=== PATIENT | female | born 1970 | race Two or more races ===

== ENCOUNTER → 2024-08-11 | Outpatient (CLI) | payer BC, SELFPAY ==
[2024-08-11 09:26] LABS: Misc Send Out* See Sep Rpt
[2024-08-11 09:50] LABS: Collection Type, Urine Clean Catch
[2024-08-11 10:09] LABS: Basophils # (Auto) 0.1 Thou/mm3 (0.0-0.2); Basophils % (Auto) 1 % (0-2.5); Eosinophils # (Auto) 0.5 Thou/mm3 (0.0-0.5); Eosinophils % (Auto) 7 % (0-10); Hematocrit 44.3 % (36.0-46.0); Hemoglobin 14.6 g/dL (12.0-16.0); Immature Granulocytes % (Auto) 0 % (0-0); Immature Granulocytes Auto 0.03 Thou/mm3 (0.00-0.00); Lymphocytes % (Auto) 39 % (10-50); Mean Corpuscular Hemoglobin 29.3 pg (25.0-35.0); Mean Corpuscular Volume 89 fL (80-100); Monocytes # (Auto) 0.7 Thou/mm3 (0.0-0.8); Monocytes % (Auto) 9 % (0-12); Neutrophils # (Auto) 3.4 Thou/mm3 (1.8-7.7); Neutrophils % (Auto) 45 % (37-80); Nucleated Red Blood Cell % 0 /100 WBC (0); Platelet Count 245 Thou/mm3 (140-440); Red Blood Count 4.99 Miln/mm3 (4.00-5.20); White Blood Count 7.7 Thou/mm3 (3.6-11.0)
[2024-08-11 10:13] LABS: Bilirubin,Urine Negative (Negative); Blood,Urine Negative (Negative); Clarity,Urine Clear (Clear/Hazy); Color,Urine Lt-Yellow (Lt Yel-Yel); Glucose, Urine Negative (Negative); Ketones,Urine Negative (Negative); Leukocyte Esterase,Urine Negative (Negative); Nitrite,Urine Negative (Negative); PH,Urine 5.5 (5.0-7.0); Protein,Urine Negative (Neg - Trace); RBC,Urine 3 /hpf (0-3); Specific Gravity,Urine 1.022 (1.001-1.035); Squamous Epithelial Cell,Urine 2 /hpf (0-5); Urobilinogen,Urine Negative mg/dL (0.0-1.0); WBC,Urine 1 /hpf (0-5)
[2024-08-11 10:13] LABS: Prothrombin Time 10.6 Seconds (9.0-12.2)
[2024-08-11 10:28] LABS: Alanine Aminotransferase 41 U/L (10-49); Albumin, Serum 4.4 gm/dL (3.5-5.0); Albumin/Globulin Ratio 1.5 (1.2-2.2); Alkaline Phosphatase 106 U/L (46-116); Anion Gap 4 (7-16); Aspartate Amino Transferase 13 U/L (0-34); BUN/Creatinine Ratio 18 Ratio (12-20); Bilirubin,Total 0.4 mg/dL (0.3-1.2); Blood Urea Nitrogen 18 mg/dL (9-23); Carbon Dioxide 26.9 mMol/L (20.0-31.0); Cardiac Risk Estimate 3.6 RATIO (3.7-5.6); Chloride 106 mMol/L (98-107); Cholesterol 173 mg/dL (132-200); Glucose 104 mg/dL (74-106); HDL Cholesterol 48 mg/dL (40-60); LDL Cholesterol,Calculated 94 mg/dL (0-130); Osmolality,Calculated 275 (275-295); Sodium 137 mMol/L (136-145); Thyroid Stimulating Hormone 2.26 uIU/mL (0.55-4.78); Total Protein 7.4 gm/dL (5.7-8.2); Triglycerides 155 mg/dL (30-150); Uric Acid 6.4 mg/dL (3.1-7.8); eGFR > 60 See Note
[2024-08-11 10:31] LABS: Vitamin B12 413 pg/mL (211-911); Vitamin D 25 Hydroxy Total 29.8 ng/mL (7.3-40.2)
== END | disposition home or self-care (01) ==
PROVIDERS: PCP Internal Medicine; Referring Provider Internal Medicine Gastroenterology; Visit Provider Internal Medicine Hematology & Oncology
DX: Z00.00 Encounter for general adult medical examination without abnormal findings (principal); K74.3 Primary biliary cirrhosis; D69.6 Thrombocytopenia, unspecified; I10 Essential (primary) hypertension; E03.9 Hypothyroidism, unspecified
CPT/HCPCS: 36415; 80053; 80061; 81001; 81596; 82105; 82306; 82607; 84443; 84550; 85025; 85610

== ENCOUNTER → 2025-04-04 | Outpatient (CLI) | payer BC, SELFPAY ==
[2025-04-04 14:17] LABS: Basophils # (Auto) 0.1 Thou/mm3 (0.0-0.2); Basophils % (Auto) 1 % (0-2.5); Eosinophils # (Auto) 0.2 Thou/mm3 (0.0-0.5); Eosinophils % (Auto) 3 % (0-10); Hematocrit 41.5 % (36.0-46.0); Hemoglobin 14.7 g/dL (12.0-16.0); Immature Granulocytes Auto 0.01 Thou/mm3 (0.00-0.00); Lymphocytes # (Auto) 3.6 Thou/mm3 (1.0-4.8); Lymphocytes % (Auto) 43 % (10-50); Mean Corpuscular HGB Conc 35.4 g/dl (31.0-37.0); Mean Corpuscular Hemoglobin 30.1 pg (25.0-35.0); Mean Corpuscular Volume 85 fL (80-100); Monocytes # (Auto) 0.5 Thou/mm3 (0.0-0.8); Monocytes % (Auto) 6 % (0-12); Neutrophils # (Auto) 3.9 Thou/mm3 (1.8-7.7); Neutrophils % (Auto) 47 % (37-80); Nucleated Red Blood Cell # 0.00 Thou/mm3 (0.00-0.00); Nucleated Red Blood Cell % 0 /100 WBC (0); Platelet Count 222 Thou/mm3 (140-440); RDW Standard Deviation 39.4 fL (36.4-46.3); Red Blood Count 4.88 Miln/mm3 (4.00-5.20); White Blood Count 8.2 Thou/mm3 (3.6-11.0)
[2025-04-04 14:24] LABS: INR 1.0 (0.9-1.3); Prothrombin Time 11.3 Seconds (9.0-12.2)
[2025-04-04 14:27] LABS: Alanine Aminotransferase 39 U/L (10-49); Albumin, Serum 4.5 gm/dL (3.5-5.0); Albumin/Globulin Ratio 1.5 (1.2-2.2); Alkaline Phosphatase 89 U/L (46-116); Anion Gap 10 (7-16); Aspartate Amino Transferase 28 U/L (0-34); BUN/Creatinine Ratio 13 Ratio (12-20); Bilirubin,Total 0.5 mg/dL (0.3-1.2); Blood Urea Nitrogen 14 mg/dL (9-23); Calcium 9.6 mg/dL (8.3-10.6); Calcium (Corrected) 9.6 mg/dL (8.5-10.1); Carbon Dioxide 26.1 mMol/L (20.0-31.0); Chloride 106 mMol/L (98-107); Creatinine (Component) 1.1 mg/dL (0.6-1.3); Globulin 3.0 gm/dL (2.3-3.5); Glucose 127 mg/dL (74-106); Osmolality,Calculated 285 (275-295); Potassium 3.8 mMol/L (3.4-5.1); Sodium 142 mMol/L (136-145); Total Protein 7.5 gm/dL (5.7-8.2); eGFR 59 See Note
[2025-04-04 14:37] LABS: Vitamin D 25 Hydroxy Total 35.2 ng/mL (7.3-40.2)
[2025-04-11 06:29] LABS: Vitamin A (Retinol)* 51 mcg/dL (38-98)
== END | disposition home or self-care (01) ==
PROVIDERS: PCP Internal Medicine; Referring Provider Internal Medicine Gastroenterology; Visit Provider Internal Medicine Gastroenterology
DX: K74.3 Primary biliary cirrhosis (principal)
CPT/HCPCS: 36415; 80053; 82306; 84590; 85025; 85610

== ENCOUNTER 2025-05-21 07:08 | Emergency (ER) | payer BC, SELFPAY ==
[2025-05-21 07:09] VITALS: BMI 30.9
[2025-05-21 07:28] VITALS: BP 133/89; PULSE 88; RESP 18; TEMP 36.9; O2SAT 99
--- NOTE | 2025-05-21 08:02 | EDNOTE_ITS ---
Upper Extremity Injury RME/HPI General Chief Complaint: Hand/Wrist Problems Stated Complaint: CUT OFF TIP OF R) 5TH DIGIT Time Seen by Provider: 05/21/25 07:26 Source: patient Arrival date/time: 05/21/25 07:08 55-year-old female with no known medical history presents to the emergency room with a chief complaint of cutting off the tip of her right fifth digit while cutting vegetables 30 minutes ago. Mode of arrival: ambulatory Limitations: no limitations Related Data Home Medications ?Medication ?Instructions ?Recorded ?Confirmed nebivolol 10 mg tablet (Bystolic) 10 mg PO QDAY 05/18/24 famotidine 20 mg tablet 20 mg PO BID 07/29/21 losartan 50 mg tablet 50 mg PO QDAY 07/29/2105/18 ursodiol 500 mg tablet 500 mg PO BID 07/29/2105/18 levothyroxine 75 mcg tablet 75 mcg PO QDAY 05/18/24 Allergies Allergy/AdvReac Type Severity Reaction Status Date / Time adhesive tape Allergy Severe RASH/BLISTERS Verified 05/21/25 07:13 / PLASTIC TAPE latex Allergy Severe BLISTERS Verified 05/21/25 07:13 carisoprodol Allergy Unknown UNKNOWN Verified 05/21/25 07:13 Review of Systems Review of Systems Systems Reviewed: All systems reviewed, normal except as documented Constitutional Constitutional: Reports system reviewed and no additional complaints, except as documented, Denies fatigue, Denies fever(s), Denies headache(s) and Denies weakness Eyes Eyes: Reports system reviewed and no additional complaints, except as documented, Denies blurry vision and Denies change in vision ENT Ears, Nose, Mouth, and Throat: Reports system reviewed and no additional complaints, except as documented, Denies otalgia, Denies headache(s), Denies nasal congestion, Denies throat swelling and Denies vertigo Cardiovascular Cardiovascular: Reports system reviewed and no additional complaints, except as documented, Denies chest pain, Denies dyspnea and Denies dyspnea on exertion Respiratory Respiratory: Reports system reviewed and no additional complaints, except as documented, Denies chest congestion, Denies cough, Denies dyspnea, Denies dyspnea on exertion and Denies wheezing Gastrointestinal Gastrointestinal: Reports system reviewed and no additional complaints, except as documented, Denies abdominal pain, Denies cramping, Denies nausea and Denies vomiting Genitourinary Genitourinary: Reports system reviewed and no additional complaints, except as documented Musculoskeletal Musculoskeletal: Reports system reviewed and no additional complaints, except as documented and Denies back pain Integumentary/Breasts Skin/Breast: Reports system reviewed and no additional complaints, except as documented and Reports wounds Neurologic Neurologic: Reports system reviewed and no additional complaints, except as documented, Denies confusion, Denies headache(s), Denies lack of coordination, Denies vertigo and Denies weakness Psychiatric Psychiatric: Reports system reviewed and no additional complaints, except as documented, Denies anxiety, Denies confusion, Denies depression, Denies paranoia, Denies suicidal ideation and Denies tactile hallucinations Endocrine Endocrine: Reports system reviewed and no additional complaints, except as documented and Denies fatigue Hematologic/Lymphatic Hematologic/Lymphatic: Reports system reviewed and no additional complaints, except as documented and Denies lymphadenopathy Allergic/Immunologic Allergic/Immunologic: Reports system reviewed and no additional complaints, except as documented, Denies throat swelling, Denies urticaria and Denies wheezing Past Medical History Past Medical History NEUROLOGIC: Positive Neurological Disorders and Migraine; Negative Seizures CARDIAC: Positive Cardiac Disorders, Heart Murmur and Hypertension; Negative Congestive Heart Failure RESPIRATORY: Positive Pneumonia and Sleep Apnea; Negative Chronic Obstructive Pulmonary Disease (COPD) GASTROINTESTINAL: Positive Gastrointestinal Disorders, Cirrhosis (primary biliary CHOLANGITIS), Gall Bladder Disease and Gastroesophageal Reflux Disease GENITOURINARY: Negative Genitourinary Disorders or Renal Disease REPRODUCTIVE: Positive Previous Pregnancies (a1) MUSCULOSKELETAL: Positive Musculoskeletal Disorders, 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) and Fractures (right wrist) ENDOCRINE: Positive Endocrine Disorders, Hyperthyroidism and Hypothyroidism (partial thyroidectomy due to cyst); Negative Diabetes Mellitus Type 1 or Diabetes Mellitus Type 2 HEMATOLOGIC: Positive Blood Disorders and Anemia (IRON SUPPLEMENTS) OTHER HISTORY: Positive Hospitalization and Chicken Pox; Negative Autoimmune Disease Family History FAMILY HISTORY: Positive Family Cardiac Disorders (dad hypertension/CVA-MOTHER) and Family Cancer (mom non hodgkin's lymphoma); Negative Family Psychiatric Problems, Family Respiratory Disorders, Family Gastrointestinal Problems, Family Surgery or Family Anesthesia Reaction Surgical History SURGICAL: Positive Thyroidectomy (partial due to cyst) and Hysterectomy (due to endometriosis) Social History SMOKING STATUS: Current some day smoker ED Exam General Limitations: Present no limitations General appearance: Present alert and in no apparent distress Head Head exam: Present atraumatic Eye Eye exam: Present normal appearance, PERRL and EOMI ENT ENT exam: Present normal exam, normal oropharynx and mucous membranes moist Neck Neck exam: Present normal inspection, full ROM and trachea midline Chest Chest inspection: Present normal inspection and symmetric chest wall rise Respiratory Respiratory exam: Present normal lung sounds bilaterally Cardiovascular Cardiovascular exam: Present regular rate, normal rhythm and normal heart sounds Abdominal Exam Abdominal exam: Present soft and normal bowel sounds Extremities Exam Extremities exam: Present normal inspection and full ROM Expanded Upper Extremity Exam Shoulder exam: Present normal inspection Arm exam: Present normal inspection Elbow exam: Present normal inspection Forearm/Wrist exam: Present normal inspection Hand exam: Present laceration Hand L/R front image: 2 1. laceration (Patient cut off the tip of the right fifth digit while cutting vegetables. It is a complete cut and there is no need for suturing) Back Exam Back exam: Present normal inspection and full ROM Neurological Exam Neurological exam: Present alert, oriented X3 and CN II-XII intact Psychiatric Psychiatric exam: Present normal affect and normal mood Skin Skin exam: Present warm, dry, intact and normal color Course Quality Measures none Orders Category Date Time Status Wound Care NOW Care 05/21/25 07:30 Active HYDROcodone*/APAP 5/325 [[place] 5/325] Med 05/21/25 07:42 Discontinued 1 tab PO X1 ONE TET,DIP/PERT AC (Adult)-Tdap [Boostrix Adult (Tdap) Med 05/21/25 07:30 Discontinued Vacc] 0.5 ml IMI .ONCE ONE Vital Signs Vital signs: Vital Signs Temperature 98.5 F 05/21/25 07:28 Pulse Rate 88 05/21/25 07:28 Respiratory Rate 18 05/21/25 07:28 Blood Pressure 133/89 H 05/21/25 07:28 Pulse Oximetry (%) 99 05/21/25 07:28 Oxygen Delivery Method Room Air 05/21/25 07:28 Extremity Injury MDM Narrative MDM Narrative:: 55-year-old female with no known medical history presents to the emergency room with a chief complaint of cutting off the tip of her right fifth digit while cutting vegetables 30 minutes ago. Patient is hemodynamically stable and in no apparent distress Physical examination shows a laceration to her right fifth digit. The laceration was to the tip of the finger there was a clean cut. The cut did not get the bone but the patient is having some bleeding. This laceration does not need any suturing. The area was cleaned with Betadine and irrigated. The patient's tetanus vaccine was updated. The patient had full sensation and was able to move her finger with no complications. A wound dressing was placed and the patient was given pain medication Patient was discharged and educated to follow-up with primary care provider in the next 24 to 48 hours and return to the emergency room for any evidence of worsening signs or symptoms Patient data External records reviewed:: [facility] previous records Clinical information provided by:: patient Social determinants that could affect healthcare access:: none Patient has the following chronic illnesses:: No chronic illness How is presenting disease/condition affected by chronic disease/condition?: no chronic disease Evaluation data The following diagnostics were reviewed and interpreted by me:: lab results and radiology exam(s) Lab and/or radiology exams considered but not ordered:: Labs and radiology exams considered and ordered Interpretation Summary: N/A Medications / Prescriptions Medications or Prescriptions considered but not ordered:: Medication given Medication administrations:: Medication Administration History Discontinued Medications Hydrocodone Bitart/Acetaminophen (Hydrocodone/Apap 5/325 Tablet) 1 tab PO X1 ONE Stop: 05/21/25 07:43 Last Admin: 05/21/25 08:27 Dose: 1 tab Documented By: ARF Diphtheria/Tetanus/Acell Pertussis (Diphth,Pertuss(Acell),Tet Vac 0.5 Ml Syr- Adult) 0.5 ml IMi .ONCE ONE Stop: 05/21/25 07:31 Last Admin: 05/21/25 08:27 Dose: 0.5 ml Documented By: ARF Medication given Consultations Consultation(s) initiated? (list below): No Diagnosis Upper Extremity Injury Differential Diagnosis: other (Laceration) Most likely diagnosis given after review of the tests above:: Laceration Admission Indicated Admission indicated?: not indicated Admission Request Was there a request for admission?: No Disposition Plan Disposition Plan: Discharge Discharge Attestation Discharge Attestation: The patient and all family members were given an opportunity to ask questions and understood the discharge instructions. Discharge instructions specifically effects, indications for sooner follow up or return to the emergency department, and the expected course of current diagnosis. Patient condition: Stable Discharge Plan Plan Patient Disposition: HOME (Self Care) Discharge Disposition comment: Stable Prescriptions/Referrals Prescriptions/Med Rec: No Action nebivolol [Bystolic] 10 mg tablet 10 mg PO QDAY losartan 50 mg Tablet 50 mg PO QDAY famotidine 20 mg Tablet 20 mg PO BID ursodiol 500 mg Tablet 500 mg PO BID levothyroxine 75 mcg tablet 75 mcg PO QDAY Referrals: Miriam Marcum MD [Primary Care Provider] - In 1 week Problem List Clinical Impression: Laceration Patient/Caregiver Discharge Instructions Additional Instructions: Please follow-up with your primary care provider in the next 24 to 48 hours The area was cleaned and wrapped. Please keep the area clean and dry for the next 24 to 48 hours For any evidence of worsening signs or symptoms return to the emergency room immediately Print Language: Surinamese Stand Alone Forms: Sofia Award Info., Work/School Release, Patient Portal Info Letter Vaccines Vaccines Given During Stay: TDaP PA/BIODIESEL PROCESSING TECHNICIAN Supervising Physician PA/BIODIESEL PROCESSING TECHNICIAN Supervising Physician: Dr. Pulido
[2025-05-21] MEDS: DIPHTH,PERTUSS(ACELL),TET VAC 0.5 ML SYR- ADULT IMi (08:27)
[2025-05-21] MEDS: HYDROcodone/APAP 5/325 TABLET 1 TAB PO (08:27)
[2025-05-21 09:34] VITALS: BP 142/86; PULSE 78; RESP 18; TEMP 36.6; O2SAT 98
== END 2025-05-21 09:36 | disposition home or self-care (01) ==
PROVIDERS: Emergency Provider Nurse Practitioner Family; PCP Internal Medicine
DX: S61.216A Laceration without foreign body of right little finger without damage to nail, initial encounter (principal); W26.0XXA Contact with knife, initial encounter; Y93.G1 Activity, food preparation and clean up; Z23 Encounter for immunization
CPT/HCPCS: 90471; 90715; 99283; A9270

== ENCOUNTER 2025-05-29 21:13 | Emergency (ER) | payer BC, SELFPAY ==
[2025-05-29 21:15] VITALS: BMI 30.9
[2025-05-29 21:24] VITALS: BP 117/78; PULSE 76; RESP 19; TEMP 36.7; O2SAT 96
--- NOTE | 2025-05-29 22:04 | PD.EDADULT ---
ED General RME/HPI General Chief complaint: Wound Recheck / Suture Removal Stated complaint: RIGHT FIFTH FINGER WOUND Time Seen by Provider: 05/29/25 21:52 Arrival date/time: 05/29/25 21:13 CC: The wound recheck to the right fifth digit after patient eviscerated part of the skin on a mandolin in the kitchen. Patient is worried that the mesh will grow into the healing wound. Patient does not have a follow-up with her wound management until 04 June. Patient is very anxious and wants the dressing removed and the finger checked. Patient denies fever chills shortness of breath or difficulty breathing. Related Data Home Medications ?Medication ?Instructions ?Recorded ?Confirmed nebivolol 10 mg tablet (Bystolic) 10 mg PO QDAY 11/27/17 05/18/24 famotidine 20 mg tablet 20 mg PO BID 07/29/21 05/18/24 losartan 50 mg tablet 50 mg PO QDAY 07/29/21 05/18/24 ursodiol 500 mg tablet 500 mg PO BID 07/29/21 05/18/24 levothyroxine 75 mcg tablet 75 mcg PO QDAY 05/18/24 05/18/24 Allergies Allergy/AdvReac Type Severity Reaction Status Date / Time adhesive tape Allergy Severe RASH/BLISTERS Verified 05/29/25 21:14 / PLASTIC TAPE latex Allergy Severe BLISTERS Verified 05/29/25 21:14 carisoprodol Allergy Unknown UNKNOWN Verified 05/29/25 21:14 Review of Systems Review of Systems Narrative Review of Systems: GEN: No fever, no chills, no weight loss EYES: No discharge, no visual changes, no pain HEENT: No ear pain, no congestion, no sore throat PULM: No shortness of breath, no cough, no congestion CV: No chest pain, no dyspnea on exertion, no palpitations GI: No nausea, no vomiting, no diarrhea, no pain, no constipation : No frequency, no urgency, no dysuria MUSC/SKEL: No joint pain, no back pain SKIN: No rash PSYCH: No hallucinations, no depression HEME/LYMPH: No easy bleeding or bruising tendencies NEURO: No weakness, no headache Past Medical History Past Medical History NEUROLOGIC: Positive Neurological Disorders and Migraine; Negative Seizures CARDIAC: Positive Cardiac Disorders, Heart Murmur and Hypertension; Negative Congestive Heart Failure RESPIRATORY: Positive Pneumonia and Sleep Apnea; Negative Chronic Obstructive Pulmonary Disease (COPD) GASTROINTESTINAL: Positive Gastrointestinal Disorders, Cirrhosis (primary biliary CHOLANGITIS), Gall Bladder Disease and Gastroesophageal Reflux Disease GENITOURINARY: Negative Genitourinary Disorders or Renal Disease REPRODUCTIVE: Positive Previous Pregnancies (a1) MUSCULOSKELETAL: Positive Musculoskeletal Disorders, 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) and Fractures (right wrist) ENDOCRINE: Positive Endocrine Disorders, Hyperthyroidism and Hypothyroidism (partial thyroidectomy due to cyst); Negative Diabetes Mellitus Type 1 or Diabetes Mellitus Type 2 HEMATOLOGIC: Positive Blood Disorders and Anemia (IRON SUPPLEMENTS) OTHER HISTORY: Positive Hospitalization and Chicken Pox; Negative Autoimmune Disease Family History FAMILY HISTORY: Positive Family Cardiac Disorders (dad hypertension/CVA-MOTHER) and Family Cancer (mom non hodgkin's lymphoma); Negative Family Psychiatric Problems, Family Respiratory Disorders, Family Gastrointestinal Problems, Family Surgery or Family Anesthesia Reaction Surgical History SURGICAL: Positive Thyroidectomy (partial due to cyst) and Hysterectomy (due to endometriosis) Social History SMOKING STATUS: Current every day smoker ED Exam Narrative Physical exam: [General: Anxious but not in any acute distress Head normocephalic HEENT: Within acceptable limits Neck is supple nontender Chest equal chest rise nontender to palpation Respiratory: Clear to auscultation no wheezes crackles or rubs CV: Rate rhythm is regular no murmurs rubs or clicks Abdomen is soft nontender no masses positive bowel sounds all 4 quadrants Back: No CVA tenderness no spinous process tenderness from cervical spine thoracic and lumbar spine Skin: Right fifth digit, tip, clean dry and intact scab is formed and eviscerated area. Cap refill is less than 2 seconds neurosensory intact to the area. There is no surrounding erythema edema or exudate. No bony exposure. Otherwise skin is intact no petechiae rash induration ulceration or crepitus Extremities: Moving all extremity against resistance cap refill less than 2 seconds neurosensory intact Neuro: Awake alert oriented x3 Glascow coma 15 no focal deficits] Course Quality Measures none Orders Category Date Time Status Dressing Care/Change NEEDED Care 05/29/25 22:11 Completed Vital Signs Vital signs: Vital Signs Temperature 98.1 F 05/29/25 21:24 Pulse Rate 76 05/29/25 21:24 Respiratory Rate 19 05/29/25 21:24 Blood Pressure 117/78 05/29/25 21:24 Pulse Oximetry (%) 96 05/29/25 21:24 Oxygen Delivery Method Room Air 05/29/25 21:24 Discharge Plan Plan Patient Disposition: HOME (Self Care) Patient condition on transfer: Stable Prescriptions/Referrals Prescriptions/Med Rec: No Action nebivolol [Bystolic] 10 mg tablet 10 mg PO QDAY losartan 50 mg Tablet 50 mg PO QDAY famotidine 20 mg Tablet 20 mg PO BID ursodiol 500 mg Tablet 500 mg PO BID levothyroxine 75 mcg tablet 75 mcg PO QDAY Problem List Clinical Impression: Encounter for wound re-check Patient/Caregiver Discharge Instructions Education Materials: ED Wound Care Additional Instructions: Keep the finger clean and dry follow-up with wound management on June 04 as scheduled. If there is a worsening of symptoms which include redness pus or significant increase in pain return immediately to the emergency room for reevaluation. Print Language: Amharic Stand Alone Forms: Sofia Award Info., Patient Portal Info Letter
== END 2025-05-29 22:32 | disposition home or self-care (01) ==
LOC: SERX 22:20
PROVIDERS: Emergency Provider Emergency Medicine; PCP Internal Medicine
DX: S61.206D Unspecified open wound of right little finger without damage to nail, subsequent encounter (principal); W27.4XXD Contact with kitchen utensil, subsequent encounter
CPT/HCPCS: 99283

== ENCOUNTER → 2025-06-04 | Outpatient (CLI) | payer BC, SELFPAY ==
[2025-06-04 12:07] LABS: Glucose Estimated Average 120 mg/dL (80-131); Hemoglobin A1C 5.8 % Hgb (4.8-6.0)
== END | disposition home or self-care (01) ==
LOC: COPL 10:48
PROVIDERS: PCP Internal Medicine; Referring Provider Student in an Organized Health Care Education/Training Program; Visit Provider Student in an Organized Health Care Education/Training Program
DX: S61.411A Laceration without foreign body of right hand, initial encounter (principal); X58.XXXA Exposure to other specified factors, initial encounter
CPT/HCPCS: 36415; 83036

== ENCOUNTER → 2025-06-04 | Outpatient (CLI) | payer BC, SELFPAY | END | disposition home or self-care (01) | LOC: SWHD 08:58 | PROVIDERS: PCP Internal Medicine; Referring Provider Internal Medicine; Visit Provider Student in an Organized Health Care Education/Training Program | DX: S61.206A Unspecified open wound of right little finger without damage to nail, initial encounter (principal); X58.XXXA Exposure to other specified factors, initial encounter; I10 Essential (primary) hypertension; K21.9 Gastro-esophageal reflux disease without esophagitis; D64.9 Anemia, unspecified; K83.09 Other cholangitis; Z90.710 Acquired absence of both cervix and uterus; Z87.891 Personal history of nicotine dependence | CPT/HCPCS: 97597; A9270 ==

== ENCOUNTER → 2025-06-11 | Outpatient (CLI) | payer BC, SELFPAY | END | disposition home or self-care (01) | LOC: SWHD 14:43 | PROVIDERS: PCP Internal Medicine; Referring Provider Internal Medicine; Visit Provider Surgery | DX: S61.206A Unspecified open wound of right little finger without damage to nail, initial encounter (principal); X58.XXXA Exposure to other specified factors, initial encounter; I10 Essential (primary) hypertension; K21.9 Gastro-esophageal reflux disease without esophagitis; D64.9 Anemia, unspecified; K83.09 Other cholangitis; Z90.710 Acquired absence of both cervix and uterus; Z87.891 Personal history of nicotine dependence | CPT/HCPCS: 99213; A9270; G0463 ==

== ENCOUNTER → 2025-06-18 | Outpatient (CLI) | payer BC, SELFPAY | END | disposition home or self-care (01) | PROVIDERS: PCP Internal Medicine; Referring Provider Internal Medicine; Visit Provider Surgery | DX: S61.206A Unspecified open wound of right little finger without damage to nail, initial encounter (principal); X58.XXXA Exposure to other specified factors, initial encounter; I10 Essential (primary) hypertension; K21.9 Gastro-esophageal reflux disease without esophagitis; D64.9 Anemia, unspecified; K83.09 Other cholangitis; Z90.710 Acquired absence of both cervix and uterus; Z87.891 Personal history of nicotine dependence | CPT/HCPCS: 99212; A9270; G0463 ==

== ENCOUNTER → 2025-08-06 | Outpatient (CLI) | payer BC, SELFPAY ==
[2025-08-06 14:30] LABS: Basophils # (Auto) 0.0 Thou/mm3 (0.0-0.2); Basophils % (Auto) 1 % (0-2.5); Eosinophils # (Auto) 0.5 Thou/mm3 (0.0-0.5); Eosinophils % (Auto) 6 % (0-10); Hematocrit 42.4 % (36.0-46.0); Hemoglobin 14.2 g/dL (12.0-16.0); Immature Granulocytes Auto 0.02 Thou/mm3 (0.00-0.00); Lymphocytes # (Auto) 3.8 Thou/mm3 (1.0-4.8); Lymphocytes % (Auto) 46 % (10-50); Mean Corpuscular HGB Conc 33.5 g/dl (31.0-37.0); Mean Corpuscular Hemoglobin 30.0 pg (25.0-35.0); Mean Corpuscular Volume 90 fL (80-100); Monocytes # (Auto) 0.8 Thou/mm3 (0.0-0.8); Monocytes % (Auto) 9 % (0-12); Neutrophils # (Auto) 3.1 Thou/mm3 (1.8-7.7); Neutrophils % (Auto) 38 % (37-80); Nucleated Red Blood Cell # 0.00 Thou/mm3 (0.00-0.00); Nucleated Red Blood Cell % 0 /100 WBC (0); Platelet Count 247 Thou/mm3 (140-440); RDW Standard Deviation 43.1 fL (36.4-46.3); Red Blood Count 4.74 Miln/mm3 (4.00-5.20); White Blood Count 8.2 Thou/mm3 (3.6-11.0)
[2025-08-06 14:35] LABS: INR 1.0 (0.9-1.3); Prothrombin Time 10.5 Seconds (9.0-12.2)
[2025-08-06 14:53] LABS: Alanine Aminotransferase 36 U/L (10-49); Albumin, Serum 4.4 gm/dL (3.5-5.0); Albumin/Globulin Ratio 1.8 (1.2-2.2); Alkaline Phosphatase 91 U/L (46-116); Anion Gap 7 (7-16); Aspartate Amino Transferase 26 U/L (0-34); BUN/Creatinine Ratio 18 Ratio (12-20); Bilirubin,Total 0.5 mg/dL (0.3-1.2); Blood Urea Nitrogen 18 mg/dL (9-23); Calcium 9.6 mg/dL (8.3-10.6); Calcium (Corrected) 9.6 mg/dL (8.5-10.1); Carbon Dioxide 29.1 mMol/L (20.0-31.0); Chloride 107 mMol/L (98-107); Creatinine (Component) 1.0 mg/dL (0.6-1.3); Globulin 2.4 gm/dL (2.3-3.5); Glucose 91 mg/dL (74-106); Osmolality,Calculated 286 (275-295); Potassium 4.3 mMol/L (3.4-5.1); Sodium 143 mMol/L (136-145); Total Protein 6.8 gm/dL (5.7-8.2); eGFR > 60 See Note
[2025-08-06 14:54] LABS: Vitamin D 25 Hydroxy Total 30.8 ng/mL (7.3-40.2)
[2025-08-15 06:22] LABS: Vitamin A (Retinol)* 53 mcg/dL (38-98)
== END | disposition home or self-care (01) ==
LOC: COPL 13:42
PROVIDERS: PCP Internal Medicine; Referring Provider Internal Medicine Gastroenterology; Visit Provider Internal Medicine Gastroenterology
DX: K74.3 Primary biliary cirrhosis (principal)
CPT/HCPCS: 36415; 80053; 82306; 84590; 85025; 85610

== ENCOUNTER → 2025-08-29 | Outpatient (CLI) | payer BC, SELFPAY ==
[2025-08-29 14:24] LABS: Basophils # (Auto) 0.1 Thou/mm3 (0.0-0.2); Basophils % (Auto) 1 % (0-2.5); Eosinophils # (Auto) 0.4 Thou/mm3 (0.0-0.5); Eosinophils % (Auto) 5 % (0-10); Hematocrit 46.3 % (36.0-46.0); Hemoglobin 15.3 g/dL (12.0-16.0); Immature Granulocytes Auto 0.04 Thou/mm3 (0.00-0.00); Lymphocytes # (Auto) 3.6 Thou/mm3 (1.0-4.8); Lymphocytes % (Auto) 43 % (10-50); Mean Corpuscular HGB Conc 33.0 g/dl (31.0-37.0); Mean Corpuscular Hemoglobin 29.5 pg (25.0-35.0); Mean Corpuscular Volume 89 fL (80-100); Monocytes # (Auto) 0.7 Thou/mm3 (0.0-0.8); Monocytes % (Auto) 9 % (0-12); Neutrophils # (Auto) 3.5 Thou/mm3 (1.8-7.7); Neutrophils % (Auto) 42 % (37-80); Nucleated Red Blood Cell # 0.00 Thou/mm3 (0.00-0.00); Nucleated Red Blood Cell % 0 /100 WBC (0); Platelet Count 257 Thou/mm3 (140-440); RDW Standard Deviation 42.3 fL (36.4-46.3); Red Blood Count 5.18 Miln/mm3 (4.00-5.20); White Blood Count 8.4 Thou/mm3 (3.6-11.0)
[2025-08-29 14:34] LABS: Glucose Estimated Average 108 mg/dL (80-131); Hemoglobin A1C 5.4 % Hgb (4.8-6.0)
[2025-08-29 14:41] LABS: Alanine Aminotransferase 44 U/L (10-49); Albumin, Serum 4.9 gm/dL (3.5-5.0); Albumin/Globulin Ratio 1.5 (1.2-2.2); Alkaline Phosphatase 90 U/L (46-116); Anion Gap 8 (7-16); Aspartate Amino Transferase 30 U/L (0-34); BUN/Creatinine Ratio 16 Ratio (12-20); Bilirubin,Total 0.4 mg/dL (0.3-1.2); Blood Urea Nitrogen 16 mg/dL (9-23); Calcium 10.2 mg/dL (8.3-10.6); Calcium (Corrected) 10.2 mg/dL (8.5-10.1); Carbon Dioxide 27.5 mMol/L (20.0-31.0); Chloride 106 mMol/L (98-107); Creatinine (Component) 1.0 mg/dL (0.6-1.3); Globulin 3.3 gm/dL (2.3-3.5); Glucose 103 mg/dL (74-106); Osmolality,Calculated 282 (275-295); Potassium 4.6 mMol/L (3.4-5.1); Sodium 141 mMol/L (136-145); Thyroid Stimulating Hormone 2.25 uIU/mL (0.55-4.78); Total Protein 8.2 gm/dL (5.7-8.2); eGFR > 60 See Note
== END | disposition home or self-care (01) ==
LOC: COPL 13:56
PROVIDERS: PCP Internal Medicine; Referring Provider Internal Medicine; Visit Provider Internal Medicine
DX: E03.9 Hypothyroidism, unspecified (principal); I10 Essential (primary) hypertension; R73.09 Other abnormal glucose
CPT/HCPCS: 36415; 80053; 83036; 84443; 85025

== ENCOUNTER → 2025-08-29 | Outpatient (CLI) | payer OTHER, SELFPAY ==
--- NOTE | 2025-08-29 13:11 | XR_ITS ---
EXAMINATION: Cervical spine, 5 views Technique: Cervical spine AP, AP odontoid, lateral, bilateral obliques, 5 views Exam date and time: August 29, 2025, 1330 hours INDICATIONS: Neck pain post injury 3 years ago. FINDINGS: Straightening normal cervical lordosis No cervical fracture Advanced degenerative disc disease C3-C4, C4-C5, C5-C6, C6-C7 with moderate to severe bilateral neuroforaminal stenosis The odontoid is intact IMPRESSION: Advanced degenerative disc disease C3-C4, C4-C5, C5-C6, C6-C7 with bilateral moderate to severe neuroforaminal stenosis
== END | disposition home or self-care (01) ==
PROVIDERS: PCP Specialist; Referring Provider Orthopaedic Surgery; Visit Provider Orthopaedic Surgery
DX: M50.31 Other cervical disc degeneration, high cervical region (principal); M48.02 Spinal stenosis, cervical region
CPT/HCPCS: 72050